=== PATIENT | female | born 2005 | race Caucasian/White ===

== ENCOUNTER 2024-03-14 16:50 | Emergency (ER) | payer BC, SELFPAY ==
[2024-03-14] VITALS (7 sets, daily range): BP systolic 114–138; BP diastolic 59–92; PULSE 84–87; BMI 34.0
[2024-03-14 17:20] LABS: % Basophils 0.5 % (0-2); % Eosinophils 0.6 % (0-6); % Immature Granulocytes 0.2 % (0-0.5); % Lymphocytes 39.6 % (20.5-51.1); % Monocytes 12.1 % (1.7-9.3); Absolute Lymphocytes 2.6 10^3/uL (1.2-3.4); Absolute Monocytes 0.8 10^3/uL (0.1-0.6); Absolute Neutrophils 3.1 10^3/uL (1.4-6.5); Hematocrit 41.4 % (37.0-47.0); Hemoglobin 13.8 g/dL (12.0-16.0); Mean Corp Hgb Conc. 33.3 g/dL (33.0-37.0); Mean Corpuscular Hgb 28.2 pg (27.0-31.0); Mean Corpuscular Volume 84.7 fL (81.0-99.0); Mean Platelet Volume 9.6 fL (7.4-10.4); Nucleated Red Blood Cells % 0 %; Platelet Count 307 10^3/uL (130-400); Red Blood Cell Count 4.89 10^6/uL (4.20-5.40); Red Cell Dist. Width 13.8 % (11.5-14.5); White Blood Cell Count 6.5 10^3/uL (4.8-10.8)
[2024-03-14 17:34] LABS: ALT (SGPT) 26 U/L (0-35); AST (SGOT) 21 U/L (14-36); Albumin 4.9 g/dl (3.5-5.0); Alkaline Phosphatase 65 U/L (38-126); Blood Urea Nitrogen 11 mg/dl (7-17); Carbon Dioxide 26 mmol/L (22-30); Chloride 101 mmol/L (98-107); Glucose 94 mg/dl (70-99); Potassium 3.6 mmol/L (3.5-5.1); Sodium 139 mmol/L (135-145); Total Bilirubin 0.5 mg/dl (0.2-1.3); Total Protein 7.6 g/dl (6.3-8.2); eGFR > 60.00
[2024-03-14 17:49] LABS: Troponin I < 0.012 ng/ml
--- NOTE | 2024-03-14 19:30 | ED.GENMED ---
History of Present Illness
General
Chief Complaint: Dizziness
Source: patient and family
Exam Limitations: none
Time Seen by Provider: 03/14/24 19:10
Nursing documentation reviewed up to this point in time: agreed with
Travel History
Have you had any contact with someone who has COVID-19?: No
Do you have any symptoms of coronavirus? Fever > 100 degrees, chills, cough, shortness of breath, sore throat, loss of taste or smell, muscle aches, or headache?: No
History of Present Illness
History of Present Illness:
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
rate sat down and symptoms persisted, she called her mother who brought her to the ER she did use her albuterol took 1 puff, she has had irregular periods she is on a hormonal control no history of DVT PE, does not drink or smoke symptoms are
worse with standing and moving her head
If applicable-neuro sx onset
Onset of symptoms known: No
Time pt last seen normal is known: No
Past History
Past History
ED Past Medical History: Asthma, Psychiatric (anxiety), Other (migraine) and Other (IBS,pots, migraines)
Social History
Tobacco: Non-smoker
Alcohol: None
Drug: None
Personal: Single
Living: with family
Employment: Employed
Family History
Family History: Other (No history of DVT PE)
Review of Systems
Review of Systems
All Other Systems: Not applicable
Constitutional: Denies fever or fatigue
EENT: Reports no symptoms
Respiratory: Reports trouble breathing
Cardiac: Reports chest pain; Denies syncope
ABD/GI: Reports no symptoms
: Reports no symptoms
Musculoskeletal: Reports other (Leg cramps)
Neurological: Reports dizzy
Endocrine: Reports no symptoms
Hematologic/Lymphatic: Reports no symptoms
Psychiatric: Reports no symptoms
Phy Exam
Physical Exam
Physical Exam:
Physical Exam
General: no apparent distress, not acutely ill
Neck: No tongue bite
Heart: Tachycardic 110 bpm
Lungs: no acute respiratory distress. clear bilaterally
Abdomen: Not tender
Neuro: alert and oriented. no focal neurological deficits
Skin: no rash
Psychiatric: well kept. interactive and cooperative
Extremities: no edema. no calf tenderness
Scores
Heart Score for Chest Pain Patients
History: Slightly or Non-Suspicious
ECG: Normal
Age: </= 45 years
Risk Factors: No Risk Factors
Troponin: </= Normal Limit
Heart Score for Chest Pain Patients: 0
Heart Score Risk: 2.5% MACE over next 6 weeks
PE Wells Score
Symptoms of DVT: No
No alternative diagnosis better explains the illness: No
Tachycardia with pulse > 100: Yes
Immobilization (>=3 days) or surgery within previous 4 weeks: No
Prior history of DVT or pulmonary embolism: No
Presence of hemoptysis: No
Presence of malignancy: No
Pulmonary Embolism Risk Score: 1.5
Probability of PE: Pt is low risk
Course
Orders/Labs/Results
Orders:
Orders
03/14/24 16:53
Electrocardiogram (*1) Urgent
Reason for Study: Chest Pain
EKG- Treatment ONCE
O2 Therapy [RESP] Urgent
Titrate/Wean O2 to maintain O2 sat greater than (%): 90
Special Instructions: Maintain sats >/=90%
03/14/24 17:10
Complete Blood Count/With Diff Urgent
Comprehensive Metabolic Panel Urgent
Troponin I Urgent
03/14/24 19:24
0.9% Sodium Chloride 1000 ml [Nss] 1,000 ml IV BOLUS
03/14/24 19:47
CR Chest - 2 Views Urgent
Comment:
Reason For Exam: sob
03/14/24 19:48
D-Dimer Urgent
Abnormal Lab Results
03/14/24
17:10
Absolute Monos (auto) 0.8 H 10^3/uL
(0.1-0.6)
Monocytes % 12.1 H %
(1.7-9.3)
03/14/24 17:10
03/14/24 17:10
Vital Signs
Initial and Last Documented VS:
Initial Vital Signs
Temp Pulse Resp BP Pulse Ox
97.8 F 116 19 138/92 100
03/14/24 16:54 03/14/24 16:54 03/14/24 16:54 03/14/24 16:54 03/14/24 16:54
Last Documented Vital Signs
Temp Pulse Resp BP Pulse Ox
97.8 F 93 15 116/80 99
03/14/24 16:54 03/14/24 19:30 03/14/24 19:30 03/14/24 19:22 03/14/24 20:59
MDM/Problems Addressed
Differential Diagnosis Includes:
POTS, dehydration, DVT PE electrolyte abnormality less likely pneumothorax doubt ACS
MDM/Problems Addressed:
Dizziness chest pain shortness of breath
Chronic conditions affecting care:
POTS asthma
Acute Exacerbation and/or Progression of Chronic Illness:
POTS asthma
*Radiology
Radiology exam reviewed: preliminary read by ED provider
*Pulse Oximetry
Patient hypoxic: no
*EKG
Interpreted by ED Provider?: Yes
Interpretation: abnormal
Comparison EKG: no comparison EKG present
Heart Rate: 108
Rate: tachycardiac
Rhythm: sinus
Ischemia: non-specific ST changes
*Coach Wirer Interpretation
Rate: tachycardiac
Interpretation: abnormal
Heart Rate: 110
Rhythm: sinus
*Critical Care Note
Total Time (30-74mins, 75-104mins- exclusive of procedures): Not Applicable
Update Note
Update Note:
Update labs are noted unremarkable undetectable troponin low D-dimer electrolytes within normal limits H&H noted chest x-ray is pending
9 PM, chest x-ray report noted
Patient feeling better after IV fluids and ambulates as she does
ED Attending Note
-
Portions of this chart may have been created with voice recognition software.� Occasional wrong word or��sound alike� substitutions may have occurred due to the inherent limitations of voice recognition software.
Discharge Plan
Departure
Patient Disposition: Home (Routine Discharge)
Date of Disposition: 03/14/24
Time of Disposition: 21:27
Patient with high blood pressure during this ER visit?: No
Condition: Good
Discharge Problem:
Dizziness, POTS (postural orthostatic tachycardia syndrome)
Instructions: Dizziness, Tachycardia (DC)
Prescriptions:
No Action
ibuprofen 600 MG tablet
600 mg PO Q6H Qty: 20 0RF
ondansetron 4 MG tablet,disintegrating
4 mg PO TIDPRN PRN (Reason: NAUSEA) Qty: 12 0RF
albuterol sulfate 1 PUFF HFA aerosol inhaler
2 puff inhalation R Q4HPRN PRN (Reason: wheezing) Qty: 1 0RF
amitriptyline 10 mg Tablet
10 mg PO DAILY
drospirenone (contraceptive) 4 mg (28) Tablet
1 tab PO DAILY
Referrals:
NONE,* [Active] -
Activity Restrictions/Additional Instructions:
Drink plenty of fluids, follow-up with your specialist physicians,
Interventions
Interventions:
*Risk Screen - Suicide Last Done: 03/14/24 16:54
*General Assessment Last Done: 03/14/24 16:54
*Neglect/Abuse Screening Last Done: 03/14/24 16:54
ED- Fall Risk Assessment Last Done: 03/14/24 19:13
*ED COVID-19 Vaccine History Last Done: 03/14/24 16:54
ED- Neurological Assessment Last Done: 03/14/24 19:13
ED Swallowing Screen Last Done: 03/14/24 19:13
Discharge Date and Time
Print Language: HAITIAN
[2024-03-14] MEDS: NSS 1000 IV (19:45)
[2024-03-14 20:17] LABS: D-Dimer < 0.27 ug/mlFEU (0.00-0.50)
== END 2024-03-14 21:45 | disposition home or self-care (01) ==
LOC: EMR 16:50
PROVIDERS: Emergency Medicine; EMERGENCY PHYSICIAN Emergency Medicine; FAMILY PHYSICIAN Pediatrics
DX: R42 Dizziness and giddiness (principal); G90.A Postural orthostatic tachycardia syndrome [POTS]; J45.909 Unspecified asthma, uncomplicated
CPT/HCPCS: 99285; 96360; 71046; 80053; 84484; 85025; 85379; 93005